=== PATIENT | female | born 1975 | race Caucasian/White ===

== ENCOUNTER 2016-12-11 15:47 | Emergency (ER) | payer BC, OTHER ==
[~2016-12-11] VITALS: Ht 170.2 cm; Wt 63.5 kg
[2016-12-11 16:11] LABS: URINE BILIRUBIN NEGATIVE (Negative); URINE BLOOD 3+ (Negative); URINE COLOR YELLOW; URINE GLUCOSE-RANDOM* NEGATIVE (Negative); URINE KETONES NEGATIVE (Negative); URINE NITRITE NEGATIVE (Negative); URINE PROTEIN (DIPSTICK) 1+ (Negative); URINE SPECIFIC GRAVITY 1.025 (1.003-1.035)
[2016-12-11 16:14] LABS: ABSOLUTE NEUTROPHILS 4.3 thou/uL (1.4-8.2); BASOPHILS 0.5 % (0.0-2.0); EOSINOPHILS 0.9 % (0.0-3.0); HEMATOCRIT 40.7 % (37.0-47.0); HEMOGLOBIN 13.8 gm/dL (12.0-15.0); LYMPHOCYTES 23.1 % (24.0-44.0); MCH 31.1 pg (26.0-34.0); MCV 91.5 fL (80.0-100.0); PLATELET COUNT 162 thou/uL (150-400); POLYS 66.5 % (36.0-66.0); RBC 4.44 mil/uL (4.20-5.00); RDW 12.6 % (10.5-14.5); WBC 6.5 thou/uL (4.0-11.0)
[2016-12-11 16:20] LABS: MANUAL DIFF NO
[2016-12-11 16:21] LABS: CALCIUM 9.3 mg/dL (8.5-10.1); CREATININE 0.9 mg/dL (0.6-1.0); POTASSIUM 3.7 mmol/L (3.5-5.1)
[2016-12-11 16:28] LABS: HYALINE CASTS 0-3 Few /LPF (None Seen); SQUAMOUS >10 Many /LPF (0-3)
[2016-12-11 16:29] LABS: CRYSTALS None Seen /LPF (None Seen); URINE RBC >20 Many /HPF (0-2); URINE WBC 6-15 Few /HPF (0-5)
[2016-12-11 17:39] VITALS: BP 106/61
[2016-12-11] MEDS ORDERED: NORCO 5-325 TA1 EACH PO (17:52)
[2016-12-11] MEDS ORDERED: MACROBID 100 M100 M1 PO (17:56)
[2016-12-11] MEDS ORDERED: FLOMAX0.4 MG PO (17:56)
== END 2016-12-11 18:18 | disposition home or self-care (01) ==
LOC: ER 15:47
PROVIDERS: Nurse Practitioner Family
DX: N20.0 Calculus of kidney (principal); N39.0 Urinary tract infection, site not specified; Z85.828 Personal history of other malignant neoplasm of skin